=== PATIENT | female | born 1950 | race Caucasian/White ===

== ENCOUNTER → 2018-08-24 12:45 | Outpatient (CLI) | payer OTHER, SELFPAY | PROVIDERS: PCP Physician Assistant; Visit Provider Physician Assistant | DX: Z78.0 Asymptomatic menopausal state (principal) | CPT/HCPCS: 77080 ==

== ENCOUNTER → 2022-08-05 11:21 | Outpatient (CLI) | payer MEDICARE, SELFPAY ==
--- NOTE | 2022-08-05 | DI.MG.S_ITS ---
BILATERAL DIGITAL SCREENING MAMMOGRAM 3D/2D WITH CAD: 08/05/2022 CLINICAL: Routine screening. Baseline exam by default. No prior exams were available for comparison. Both breasts are heterogeneously dense, which may obscure small masses (category c / 51-75% glandular tissue). Current study was also evaluated with a Computer Aided Detection (CAD) system. There are grouped heterogeneous calcifications in the right breast at 1 o'clock anterior depth. No other significant masses, calcifications, or other findings are seen in either breast. IMPRESSION: INCOMPLETE: NEEDS ADDITIONAL IMAGING EVALUATION The grouped heterogeneous calcifications in the right breast are indeterminate. Additional views with possible ultrasound are recommended. Based on the Tyrer Cuzick model (a risk assessment model) the patient's lifetime risk is 7.4% and her 10 year risk is 6.1%. According to the ACR, ACS, and NCCN guidelines, an annual breast MRI exam along with mammogram is recommended if the patient's lifetime risk is 20% or greater. This exam was interpreted at Station ID: [id number]. NOTE: For mammograms, a report in lay terms will be sent to the patient. Approximately 15% of breast malignancies will not be visualized mammographically. In the management of a palpable breast mass, a negative mammogram must not discourage biopsy of a clinically suspicious lesion. Electronically Signed By: Polly clark/michael:08/06/2022 14:12:06 letter sent: Additional Imaging Needed ACR BI-RADS Category 0: Incomplete [id number]
== END ==
PROVIDERS: PCP Registered Nurse; Referring Provider Registered Nurse; Visit Provider Registered Nurse
DX: Z12.31 Encounter for screening mammogram for malignant neoplasm of breast (principal)
CPT/HCPCS: 77063; 77067

== ENCOUNTER → 2022-08-22 13:21 | Outpatient (CLI) | payer MEDICARE, SELFPAY ==
--- NOTE | 2022-08-22 | DI.MG.S_ITS ---
UNILATERAL RIGHT DIGITAL DIAGNOSTIC MAMMOGRAM 3D/2D WITH ADDITIONAL VIEWS: 08/22/2022 CLINICAL: Additional evaluation requested from prior study. Comparison is made to exam dated: 08/05/2022 mammogram - [facility], which was a baseline study. The right breast is heterogeneously dense, which may obscure small masses (category c / 51-75% glandular tissue). There are grouped calcifications in the right breast at 1 o'clock anterior depth. No other significant masses or calcifications are seen in the breast. IMPRESSION: PROBABLY BENIGN The grouped calcifications in the right breast are probably benign. A follow-up mammogram in 6 months is recommended. Based on the Tyrer Cuzick model (a risk assessment model) the patient's lifetime risk is 7.4% and her 10 year risk is 6.1%. According to the ACR, ACS, and NCCN guidelines, an annual breast MRI exam along with mammogram is recommended if the patient's lifetime risk is 20% or greater. This exam was interpreted at Station ID: [id number]. NOTE: For mammograms, a report in lay terms will be sent to the patient. Approximately 15% of breast malignancies will not be visualized mammographically. In the management of a palpable breast mass, a negative mammogram must not discourage biopsy of a clinically suspicious lesion. Electronically Signed By: Robin Oconnor M.D. lc/:08/22/2022 14:35:47 letter sent: Followup Recommended ACR BI-RADS Category 3: Probably benign [id number]
== END ==
PROVIDERS: PCP Registered Nurse; Referring Provider Registered Nurse; Visit Provider Registered Nurse
DX: R92.1 Mammographic calcification found on diagnostic imaging of breast (principal)
CPT/HCPCS: 77065; G0279

== ENCOUNTER → 2023-03-31 13:34 | Outpatient (CLI) | payer MEDICARE, SELFPAY ==
--- NOTE | 2023-03-31 13:36 | DI.MG.S_ITS ---
UNILATERAL RIGHT DIGITAL DIAGNOSTIC MAMMOGRAM 3D/2D: 03/31/2023 CLINICAL: Short term follow up. Comparison is made to exams dated: 08/22/2022 mammogram, 08/05/2022 mammogram - [facility], and 08/25/2018 mammogram - outside location. The right breast is heterogeneously dense, which may obscure small masses (category c / 51-75% glandular tissue). There are grouped 7 mm dystrophic calcifications in the right breast at 1 o'clock anterior depth, stable since 08/22/2022. No other significant masses or calcifications are seen in the breast. IMPRESSION: PROBABLY BENIGN Right breast 7 mm grouped dystrophic calcifications at 1 o'clock anterior depth, stable since 08/22/2022. Recommend follow-up mammogram in 6 months to demonstrate stability 1 year stability. Patient will be due for bilateral mammogram at that time. Findings and recommendations were conveyed to the patient during today's evaluation. Based on the Tyrer Cuzick model (a risk assessment model) the patient's lifetime risk is 7.4% and her 10 year risk is 6.1%. According to the ACR, ACS, and NCCN guidelines, an annual breast MRI exam along with mammogram is recommended if the patient's lifetime risk is 20% or greater. This exam was interpreted at Station ID: [id number]. NOTE: For mammograms, a report in lay terms will be sent to the patient. Approximately 15% of breast malignancies will not be visualized mammographically. In the management of a palpable breast mass, a negative mammogram must not discourage biopsy of a clinically suspicious lesion. Electronically Signed By: Nini Galicia M.D., PH.D eb/:03/31/2023 17:37:15 letter sent: Followup Recommended ACR BI-RADS Category 3: Probably benign [id number]
== END ==
LOC: MAMMO 13:35
PROVIDERS: PCP Internal Medicine; Referring Provider Internal Medicine; Visit Provider Internal Medicine
DX: R92.1 Mammographic calcification found on diagnostic imaging of breast; R92.331 Mammographic heterogeneous density, right breast
CPT/HCPCS: 77065; G0279

== ENCOUNTER 2023-09-09 12:17 | Day surgery (SDC) | payer MEDICARE, SELFPAY ==
[2023-09-09 12:57] VITALS: BP 153/75; PULSE 62; RESP 16; TEMP 36.5; O2SAT 97
[2023-09-09] MEDS: LACTATED RINGERS 1,000 ML 42 ML IV (13:04)
--- NOTE | 2023-09-09 13:11 | PM.PREOP ---
Pre-operative Note COVID-19 COVID-19 status: Not tested Interval Note History & Physical reviewed/Exam performed by Physician: Yes Changes to H&P: No ASA Class (for procedural sedation): II
--- NOTE | 2023-09-09 13:11 | PM.OP.COLON ---
Operative Date/Time/Diagnoses Date of procedure: 09/09/23 Pre-op diagnosis: See indication and findings Procedure & Clinicians Study performed: Colonoscopy Indications: History of diverticulitis and slow transit constipation Surgeon: Maria E Barakat Procedure Notes Procedure in detail: After informed consent was obtained the patient was placed in left lateral decubitus position. The video colonoscope was introduced the rectum slowly advanced cecum. Preparation was good. On slow withdrawal mucosa was carefully examined. The scope was removed. The patient tolerated the procedure well. Blood loss none Complications none Sedation mac Findings 1. Normal colonoscopy to cecum including the fact that no diverticula were seen. This does not however exclude an occasional small diverticulum deep between folds. Patient should follow-up least by telephone with Dr. Bird
[2023-09-09 13:38] VITALS: BP 128/65; PULSE 75; RESP 10; TEMP 36.3; O2SAT 93
[2023-09-09 13:43] VITALS: BP 130/63; PULSE 73; RESP 12; O2SAT 92
[2023-09-09 13:49] VITALS: BP 141/66; PULSE 75; RESP 17; O2SAT 98
[2023-09-09 13:54] VITALS: BP 139/73; PULSE 74; RESP 14; O2SAT 98
== END 2023-09-09 14:15 | disposition home or self-care (01) ==
PROVIDERS: PCP Internal Medicine; Referring Provider Internal Medicine Gastroenterology; Visit Provider Internal Medicine Gastroenterology
PROC: 0DJD8ZZ Inspection of Lower Intestinal Tract, Via Natural or Artificial Opening Endoscopic (ICD-10-PCS; CPT 45378; principal; 2023-09-09 13:30)
DX: K59.01 Slow transit constipation (principal); Z87.19 Personal history of other diseases of the digestive system
CPT/HCPCS: 45378; J2704

== ENCOUNTER → 2023-09-29 09:12 | Outpatient (CLI) | payer MEDICARE, SELFPAY ==
--- NOTE | 2023-09-29 09:14 | DI.MG.S_ITS ---
BILATERAL DIGITAL DIAGNOSTIC MAMMOGRAM 3D/2D: 09/29/2023 CLINICAL: Short term follow up, due bilateral. Comparison is made to exams dated: 03/31/2023 mammogram, 08/22/2022 mammogram, 08/05/2022 mammogram - [facility], and 08/25/2018 mammogram - outside location. Both breasts are heterogeneously dense, which may obscure small masses (category c / 51-75% glandular tissue). There are grouped 7 mm dystrophic calcifications in the right breast at 1 o'clock anterior depth, stable since 08/22/2022. No other significant masses, calcifications, or other findings are seen in either breast. IMPRESSION: PROBABLY BENIGN Right breast 7 mm grouped dystrophic calcifications at 1 o'clock anterior depth, stable since August 2022. Recommend follow-up mammogram in 12 months to demonstrate 2 year stability. Patient will be due for bilateral mammogram at that time. Findings and recommendations were conveyed to the patient during today's evaluation. Based on the Tyrer Cuzick model (a risk assessment model) the patient's lifetime risk is 6.9% and her 10 year risk is 6.3%. According to the ACR, ACS, and NCCN guidelines, an annual breast MRI exam along with mammogram is recommended if the patient's lifetime risk is 20% or greater. This exam was interpreted at Station ID: [id number]. NOTE: For mammograms, a report in lay terms will be sent to the patient. Approximately 15% of breast malignancies will not be visualized mammographically. In the management of a palpable breast mass, a negative mammogram must not discourage biopsy of a clinically suspicious lesion. Electronically Signed By: Nini Galicia M.D., Ph.D. eb/:09/29/2023 10:42:19 letter sent: Followup Recommended ACR BI-RADS Category 3: Probably benign [id number]
== END ==
LOC: MAMMO 09:13
PROVIDERS: PCP Internal Medicine; Referring Provider Internal Medicine; Visit Provider Internal Medicine
DX: R92.1 Mammographic calcification found on diagnostic imaging of breast (principal); R93.89 Abnormal findings on diagnostic imaging of other specified body structures; R92.333 Mammographic heterogeneous density, bilateral breasts
CPT/HCPCS: 77066; G0279

== ENCOUNTER → 2024-05-26 11:46 | Outpatient (CLI) | payer MEDICARE, SELFPAY ==
--- NOTE | 2024-05-26 16:22 | ST.SWALLOW ---
Visit Care Team Role Provider Type Maki Amanda MD Attending Provider Non-Staff Primary Care Provider Referring Provider Specialty: Internal Medicine Address: [address] [place] [address], [id number] Email: Modified Barium Swallow Study ORACLE ARCHITECT Modified Barium Swallow Study Start: 05/26/24 15:29 Freq: Status: Active Protocol: Document 05/26/24 16:11 LNK (Rec: 05/26/24 16:22 LNK Desktop) Modified Barium Swallow Study Total Time Visit Start Time 12:00 Visit Stop Time 12:30 Total Visit Minutes 30 Referral Referring Physician Maki Amanda MD Setting Setting Outpatient Care Patient Information Identification Type Name,Date of Patient History Pt seen for a Modified barium Swallow Study with c/o a sense of globus with occasional regurgitation of undigested foods at timed. She also describe continuous PND that does not seem to be swallowed completely. Pt denied difficulty drinking liquids and taking pills. She uses a carrier food to assist with swallowing pills. She noted an occasional cough when eating/ drinking. Pt denied neurological diagnosis and head/neck injury /surgery. Subjective Observations Pt was seated in the fluoroscopy chair with directions and procedures described for her. She indicated she understood and agreed to proceed. Patient Positioning Position View Lat-A/P Imaging Lateral View Textures Administered Trials Presented Thin Liquid via Spoon (IDDSI 0 ),Thin Liquid via Cup (IDDSI 0 ),Extremely Thick Liquid via Spoon (IDDSI 4),Regular (IDDSI 7) Barium Tablet Yes The IDDSI Framework Protocol: IDDSI.1 Oral Impairment Source: The Modified Barium Swallow Impairment Profile (MBSImP??) Lip Closure No labial escape Tongue Control During Bolus Hold Cohesive bolus between tongue to palatal seal Bolus Preparation/Mastication Timely & efficient chewing & mashing Bolus Transport/Lingual Motion Brisk tongue motion Oral Residue Complete oral clearance Initiation of Pharyngeal Swallow Bolus head in valleculae Additional Oral Impairment Observations *OME and DKS were observed to be WNL. *Dentition natural and in good hygiene *Mastication observed with rotary chew pattern. *Good bolus formation, control and AP transition. *Velopharyngeal closure was WNL. Oral phase of swallow observed to be WNL Pharyngeal Impairment Source: The Modified Barium Swallow Impairment Profile (MBSImP??) Soft Palate Elevation No bolus between soft palate & pharyngeal wall Laryngeal Elevation Comp.sup.move.thyroid cart.w/ comp.approx.arytenoids to epiglot petiole Anterior Hyoid Excursion Partial anterior movement Epiglottic Movement Complete inversion Laryngeal Vestibular Closure Complete; no air/contrast in laryngeal vestibule Pharyngeal Stripping Wave Present - complete Pharyngoesophageal Segment Opening Complete distention & complete duration; no obstruction of flow Tongue Base Retraction No contrast between tongue base & posterior pharyngeal wall Pharyngeal Residue Complete pharyngeal clearance Additional Pharyngeal Impairment *Adequate hyolaryngeal Observations elevation *Complete epiglottic inversion and laryngeal seal * No s/sx of laryngeal penetration/tracheal aspiration * Pharyngeal phase of swallow observed to be WNL A/P View Textures Administered Trials Presented Thin Liquid via Spoon (IDDSI 0 ),Thin Liquid via Cup (IDDSI 0 ) The IDDSI Framework Protocol: IDDSI.1 A/P View Observations Pharyngeal Contraction Complete Esophageal Clearance Upright Position Complete clearance; esophageal coating Vocal Fold Function Good Esophageal Function WFL Additional A-P Observations *Thin liquid barium and calibrated 13 mm barium tablet cleared to the stomach within timely manner *Esophageal phase of swallow observed to be WNL WNL Clinical Impressions Dysphagia Type WNL Findings Pt presented with swallowing across all phases to be WNL Patient Appropriate for Therapy No Recommendations Diet Comments No diet change recommended. Pt should drink more frequently during meals
== END ==
PROVIDERS: PCP Internal Medicine; Referring Provider Internal Medicine; Visit Provider Internal Medicine
DX: R09.82 Postnasal drip (principal); E79.0 Hyperuricemia without signs of inflammatory arthritis and tophaceous disease
CPT/HCPCS: 74230; 92611

== ENCOUNTER → 2024-10-11 | Outpatient (CLI) | payer MEDICARE, SELFPAY ==
--- NOTE | 2024-10-11 11:26 | DI.MG.S_ITS ---
MM diagnostic mammo BI: 10/11/2024. BI-RADS: 2 CLINICAL: 74-year old female for bilateral diagnostic mammogram. The patient presents for a follow-up. Tyrer-Cuzick lifetime risk of 5.8%. No personal or first-degree family history of breast cancer. PRIOR EXAMS 09/29/2023, 03/31/2023, 08/22/2022, 08/05/2022. MAMMOGRAPHY TECHNIQUE: 2D and 3D (tomosynthesis) digital mammographic views obtained, with additional images as needed for full coverage. Current study was also evaluated with a Computer Aided Detection (CAD) system. DENSITY C. The breasts are heterogeneously dense, which may obscure small masses. MAMMOGRAPHY FINDINGS Right: Upper Inner at 1:00, Anterior depth, measuring 0.7cm: Correlating with prior imaging concern there are grouped coarse heterogeneous calcifications that are unchanged in size and appearance. This finding has demonstrated two years of stability and is consistent with a benign etiology. There are similar appearing coarse calcifications in the left breast. Left: Benign-appearing calcifications noted on the left. There are no suspicious masses, calcifications, or other findings in the breast. IMPRESSION: * No evidence of malignancy with benign findings. RECOMMENDATIONS Bilateral * Annual screening mammography. COMMENTS: Findings and recommendations were conveyed to the patient during today's evaluation. OVERALL ASSESSMENT CATEGORY BI-RADS-2: Benign. The [employer] recommends annual screening mammography beginning at age 40 for women with average risk of breast cancer. ELECTRONICALLY SIGNED: Gayle Steel M.D. on 10/11/2024 at 01:22:55 PM PT Interpreting Station ID: [id number]
== END ==
PROVIDERS: PCP Nurse Practitioner Primary Care; Referring Provider Nurse Practitioner Primary Care; Visit Provider Nurse Practitioner Primary Care
DX: R92.1 Mammographic calcification found on diagnostic imaging of breast (principal); R92.333 Mammographic heterogeneous density, bilateral breasts; Z87.898 Personal history of other specified conditions
CPT/HCPCS: 77063; 77067